=== PATIENT | male | born 1970 | race Caucasian/White ===

== ENCOUNTER 2017-01-22 16:38 | Inpatient (IN) ==
[2017-01-22] MEDS ORDERED: MORPHINE IV ONE (17:23)
[2017-01-22] MEDS ORDERED: LEVAQUIN 500 MG/D5W 500 MG/100 ML IVPB IV ONE (17:23)
[2017-01-22] MEDS ORDERED: FLAGYL 500 MG/NS 500 MG/100 ML IVPB IV ONE (17:23)
[2017-01-22] MEDS ORDERED: SODIUM CHLORIDE 0.9% INJ ONE (17:24)
[2017-01-22] MEDS ORDERED: PHENERGAN IV ONE (17:24)
--- NOTE | 2017-01-22 17:52 | PROVIDER DOCUMENTATION ---
This chart was entered by Lorena Falcon Scribe, acting as scribe for Justin Helton MD. HPI-Abdominal Pain/GI Problem - General Chief Complaint: Abdominal Pain Stated Complaint: SENT BY DR WHITING- POSS DIVERTICULITIS Time Seen by Provider: 01/22/17 16:57 Source: patient, family Allergies/Adverse Reactions: Patient Allergies Allergy/AdvReac Type Severity Reaction Status Date / Time Penicillins Allergy Unknown Verified 04/19/12 19:23 Home Medications: Home Medication List Medication Instructions Recorded Confirmed Last Taken Type Hydrocodone/Acetaminophen [Lortab 1 each PO 4XDAY 04/19/12 04/19/12 09/19/12 History 10-500 Tablet] Meloxicam [Mobic] 30 mg PO DAILY 04/19/12 04/19/12 09/18/12 History Morphine Sulfate [Morphine Sulfate 30 mg PO DAILY 09/19/12 09/19/12 09/18/12 History ER] Hydrocodone/Acetaminophen [[place] 1 each PO Q4-6H PRN PRN #20 tablet 01/30/16 Unknown Rx 10-325 Tablet] Tamsulosin [Flomax] 0.4 mg PO DAILY #7 capsule 01/30/16 Unknown Rx - History of Present Illness-ABD Nature of Presenting Problems: 46 year-old male presents to the ER with lower abdominal pain, diarrhea, and rectal bleeding. His symptoms began 7 weeks ago and have been getting worse. 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 Whiting, who saw him in her office earlier today. He has changed his diet to rice, chicken, and salads during the past 3 weeks with no improvement. He has had blood present in his diarrhea and had blood present upon a rectal exam performed by Dr. Whiting earlier today. She suspects colitis and sent the patient to the ER to be admitted for further testing. The patient denies any nausea upon on exam, but continues to have diarrhea and abdominal pain. Abdominal Pain Onset Location: reports: RLQ, LLQ Pain Radiation: reports: no radiation Quality of Pain: reports: aching, pressure Severity in ED: reports: moderate Onset/Duration: reports: other (7 weeks) Timing: reports: still present, getting worse Activities at Onset: reports: none Exposure to sick contacts?: No Modifying Factors: worse with: breathing, defecating, vomiting Associated Symptoms: reports: diarrhea, nausea. denies: constipation, fever/ chills, shortness of breath, syncope, vomiting Last BM: this evening Dark Stools Present?: reports: bright red blood Rectal Bleeding: reports: blood mixed with stool Rectal Pain: reports: none Emesis Description: reports: none Bruising or Bleeding Gums?: No Similar Symptoms Previously?: Yes (Ongoing for 7 weeks. ) Recently seen or treated by another doctor?: Yes (Dr. Whiting) Review of Systems - Adult - REVIEW OF SYSTEMS - ADULT Constitutional: reports: no symptoms reported, see HPI. denies: chills, fever, weight gain, weight loss Eyes: reports: no symptoms reported, see HPI. denies: discharge, decreased vision, double vision, redness Ears, Nose, Mouth & Throat: reports: no symptoms reported, see HPI. denies: ear pain, sinus problem, hoarseness, throat pain Cardiovascular: reports: no symptoms reported, see HPI. denies: chest pain, edema, syncope Respiratory: reports: no symptoms reported, see HPI. denies: chronic cough, cough, dyspnea on exertion, shortness of breath Gastrointestinal: reports: see HPI, abdominal pain, diarrhea, nausea, rectal bleeding. denies: difficulty swallowing, vomiting Genitourinary: reports: no symptoms reported, see HPI. denies: dysuria, flank pain, incontinence Musculoskeletal: reports: no symptoms reported, see HPI. denies: back pain, muscle aches, muscle weakness Integumentary: reports: no symptoms reported, see HPI. denies: hair loss, itching, rash Neurological: reports: no symptoms reported, see HPI. denies: dizziness/vertigo , syncope Psychiatric: reports: no symptoms reported, see HPI. denies: anxiety, anti- depressant use, depression Endocrine: reports: no symptoms reported, see HPI Hematologic/Lymphatic: reports: no symptoms reported, see HPI. denies: easy bruising Allergic/Immunologic: reports: no symptoms reported, see HPI All Other Systems: Reviewed and Negative Past History - Adult - PAST MEDICAL HISTORY-ADULT Review of Records: reports: Old Records Reviewed, Nursing Assessment Review, Medications Reviewed, Social history reviewed & non-contributory. Major Childhood Illnesses: reports: denies history Cardiovascular: reports: denies history Respiratory: reports: denies history Gastrointestinal: reports: denies history Obstetrical/Gynecological: reports: denies history Genitourinary: reports: denies history Musculoskeletal: reports: denies history Neurological: reports: denies history Endocrine/Immune: reports: denies history Other Conditions: reports: denies history - IMMUNIZATION STATUS Childhood Immunizations: See Nurse Assessment Flu Vaccine: See Nurse Assessment - FAMILY HISTORY Family History: reviewed, not pertinent - SOCIAL HISTORY Smoking: non-smoker Substance Use: none/never, none presently/history of abuse Alcohol Use Frequency: never Physical Exam-General - PHYSICAL EXAM-ADULT Initial Vital Signs Reviewed: Yes - CONSTITUTIONAL General Appearance: appears well, alert, no apparent distress. negative: obese , lethargic - EYES Eyes: PERRL/EOMI. negative: pink conjunctivae, pale conjunctivae, photophobia, subconjunctival hemorrhage - HEAD, EARS, NOSE, MOUTH & THROAT HENMT: normocephalic/atraumatic, moist mucous membranes, normal ENT inspection, pharynx normal. negative: dental decay, pharyngeal erythema - NECK Neck: non-tender, full range of motion, supple, normal inspection - RESPIRATORY Respiratory: chest non-tender, lungs clear, normal breath sounds, no pleuratic chest pain, no respiratory distress, no accessory muscle use. negative: respiratory distress, decreased breath sounds, accessory muscle use, crackles, rales, rhonchi, wheezing - CARDIOVASCULAR Cardiovascular: normal peripheral pulses, regular rate, rhythm, no edema, no gallop, no murmur - GASTROINTESTINAL (ABDOMEN) Abdominal Exam: normal bowel sounds, soft, tenderness ([place] lower quadrants are tender to palpation.) - LYMPHATIC Lymphatic: no adenopathy - MUSCULOSKELETAL Back Exam: normal inspection, no CVA tenderness, no vertebral tenderness, CVA tenderness. negative: decreased range of motion Extremity: normal range of motion, non-tender, normal gait, normal inspection. negative: no pedal edema, no calf tenderness, swelling, tenderness - SKIN Integumentary: normal color, normal turgor, warm/dry, warm. 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 nml as tested, grossly normal, no motor/sensory deficits - PSYCHIATRIC Psych/Mental Status: normal mood/affect, normal thought content, normal thought process, oriented x 3 Progress - PLAN OF CARE/RESULTS Progress/Plan/Lab Results: Vital Signs - 8 hr 08/23/17 16:46 Temperature 99.1 F Pulse Rate 86 Respiratory Rate 18 Blood Pressure 149/89 O2 Sat by Pulse Oximetry 99 Orders Category Date Time Status Levofloxacin 500 mg/D5w [Levaquin 500 mg/D5w] Med 01/22/17 17:23 Active 500 mg in 100 ml IV NOW Metronidazole 500 mg/Ns [Flagyl 500 mg/Ns] Med 01/22/17 17:23 Active 500 mg in 100 ml IV NOW Morphine Med 01/22/17 17:23 Discontinued 4 mg IV NOW ONE Promethazine [Phenergan] Med 01/22/17 17:24 Discontinued 12.5 mg IV NOW ONE Sodium Chloride 0.9% Med 01/22/17 17:24 Discontinued 10 ml INJ NOW ONE - CONSULTS/PCP/HOSPITALIST Notification #1 *Consult/PCP/Hospitalist*: Dr. Whiting calls ER to give report on patient prior to arrival to ER. Reason/Comments: Patient has rectal bleeding and possible colitis. Consult Disposition: other (Will contact Dr. Whiting when patient arrives.) #2 Consult: Dr. Perez the hospitalist radiation control technician at this time. Time Discussed: 17:25 Reason/Comments: Patient is accepted for admission to his services at this time. Consult Disposition: Admit #3 Consult: Dr. Whiting via cell phone. Time Discussed: 17:30 Reason/Comments: Informed Dr. Whiting of patient's status. Consult Disposition: other (Will consult with patient in hospital.) Departure - Departure Date of Disposition Decision: 01/22/17 Time of Disposition Decision: 17:45 DIAGNOSIS: Colitis Disposition: ADMITTED INPATIENT 09 Certified Medical Emergency: Emergent Condition: Stable Referrals and Follow-Ups: VARUN ESPARZA [Primary Care Provider] - Wendi Whiting MD [ACTIVE STAFF PHYSICIAN] - - Critical Care Note This patient required my direct & personal management of CC.: No Attestation - Physician/ KATELYNN Attestation Patient care was provided by Advanced Practice Provider:: No The physician spent face to face time with patient:: Yes Advanced Practice Provider documentation review:: Supervising physician onsite and consulted in the evaluation and care of this patient. The physician did have a face to face encounter with the patient. This chart was documented by the indicated scribe, (Lorena Falcon, Abdiel) and accurately reflects the services I performed and decisions made by me, Cal Helton MD, as attested by the provider's signature.
--- NOTE | 2017-01-22 19:45 | HISTORY AND PHYSICAL ---
PCP: None. HAND KISS SETTER: Dr. Whiting. PRESENTING COMPLAINT: Bloody diarrhea for 1 month. HISTORY OF PRESENTING COMPLAINT: Mr. Hernandez is a 46-year-old male with past medical history of nephrolithiasis, who according to him, has been experiencing bloody stools for over a year now. However, for the past couple of months he has also been having diarrhea in the number of 10-20 which is usually bloody and has lost about 15 pounds in the past 1 month, and also had some ulcers in his mouth about a month ago. The patient went to see a PCP, saw a nurse practitioner and was referred to see Dr. Whiting. I understand Dr. Whiting planned to do a colonoscopy; however, after examining the patient this morning in her office, there was a lot of blood on the SC exam, so she advised the patient to come to the emergency department with an order for a CT scan, which was positive. She therefore recommended that the patient be admitted for medical workup and management. The patient also refers that for the past few weeks, he has been having on and off lower abdominal pain on a scale of about 4 to 6/10. It is usually cramping in nature and it goes on its own without any intervention. PAST MEDICAL HISTORY: Nephrolithiasis. ALLERGIES: To penicillin. Patient is not sure what type of allergy it gives, it was from childhood. However, he has taken amoxicillin before and has not given him any reaction. SURGICAL HISTORY: Renal stone extraction. SOCIAL HISTORY: Patient is . Denies alcohol. Stopped smoking for the past 6 months, used to smoke more than 2 packs a day for over 20 years. FAMILY HISTORY: Positive for both grandparents on the mother's side with colorectal cancer. CURRENT MEDICATIONS: Include: 1. Meloxicam. 2. [place]. 3. Morphine at home. 4. Tamsulosin 0.4 mg daily. REVIEW OF SYSTEMS: A 12-point review of systems conducted with the patient is unremarkable. Specifically, the patient denies any chest pain or shortness of breath. Denies any rash on his skin. Denies any ulcerations around his penis. Denies any discoloration or blurry vision. PHYSICAL EXAMINATION: VITAL SIGNS: Have not been done yet. GENERAL: Mr. Hernandez is a 46-year-old male. He is in bed, does not seem to be in any remarkable distress. Seems to have normal weight. HEENT: Mucosa is pink and moist. Anicteric. Acyanotic. Head is normocephalic and atraumatic. NECK: Supple. There is no JVD no carotid bruit. Thyroid is not palpable. CHEST: Good air entry bilateral. No crepitations. No rhonchi. There is no accessory muscle use. CARDIOVASCULAR: Regular rate and rhythm. There is no murmurs, no rubs, no gallops. [place] is at 5th intercostal space, midclavicular line. ABDOMEN: Soft. Mildly tender in the left lower quadrant. There is no rebound or no guarding. Bowel sounds are present. There is no hepatosplenomegaly. EXTREMITIES: No pedal edema. Distal pulses are present. There is no rash or any petechiae. 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 Executive functions are intact. Gait is normal. Cranial nerves 2-12 have been grossly examined and they are unremarkable. Motor is 5/5 in all extremities. There is no sensory deficits. Reflexes are normal. PSYCH: Patient has good judgment and insight. LABORATORY DATA: This morning WBC is 9.58, hemoglobin is 13.6, platelet count 330,000. Chemistry is reviewed. Sodium is 141, potassium is 4.1, chloride is 28, bicarb is 14. A CT scan of the abdomen shows distal colitis. ASSESSMENT: Mr. Hernandez is a 46-year-old male who presented to the emergency department from Dr. Whiting's office, complaining of more than a month of diarrhea with blood. 1. Chronic bloody diarrhea. R/o IBD 2. Distal colitis on CT scan. 3. Constipation. 4. Mild dehydration. 5. Previous tobacco abuse. Patient has stopped smoking for the past 6 months. PLAN: The general plan is there has been an order already for stool cultures and stool studies to be done. We will follow up on the results. Will start the patient on IV levofloxacin and metronidazole for the colitis. We will also add MiraLAX to help with the CT finding of constipation. I think patient would eventually need to have a scope. In the acute inflammatory state, I think colonoscopy will not be ideal, but the patient can still have a flexible sigmoidoscopy to have an idea what is going on in colon. We will consult Dr. Whiting to evaluate the patient while he is in the hospital. cc: Galindo Perez MD MTDD
[2017-01-23] MEDS ORDERED: NS 1,000 ML IV ONE (00:34)
[2017-01-23] MEDS ORDERED: TYLENOL PO PRN (00:34)
[2017-01-23] MEDS: ZOFRAN IV PRN ×2 (01:06→06:28)
[2017-01-23] MEDS: MORPHINE IV PRN ×5 (01:06→22:00)
[2017-01-23] MEDS: FLAGYL 500 MG/NS 500 MG/100 ML IVPB IV SCH ×4 (01:07→20:58)
[2017-01-23] MEDS: PROTONIX IV SCH (03:08)
[2017-01-23] MEDS: SODIUM CHLORIDE 0.9% INJ SCH (03:08)
[2017-01-23 08:56] LABS: MANUAL DIFF NEEDED? NO
[2017-01-23 09:00] LABS: BASO% 0.2 % (0.0-0.8); EOS# 0.11 X1000 (0.0-0.7); HEMATOCRIT 38.8 % (42.0-52.0); HEMOGLOBIN 12.9 g/dL (14.0-18.0); IMM GRAN# 0.05 X1000 (0.0-0.04); IMM GRAN% 0.5 % (0.0-0.5); LYMPH# 1.36 X1000 (1.2-3.4); LYMPH% 12.5 % (20.5-51.1); MCH 29.5 PG (27-31); MCHC 33.2 g/dL (33-37); MCV 88.6 FL (81-99); MONO% 14.7 % (1.7-9.3); MPV 10.7 FL (7.4-10.4); NEUT% 71.1 % (42.2-75.2); PLT 299 X1000 (130-400); RBC 4.38 XMIL (4.7-6.1)
[2017-01-23 09:20] LABS: AGAP 12; ALBUMIN 3.6 g/dL (3.5-5.0); ALKALINE PHOSPHATASE 73 U/L (32-122); BUN 7 mg/dL (8-22); CALCIUM 8.7 mg/dL (8.8-10.2); CHLORIDE 102 mmol/L (98-107); COSMO 279; GOT 15 U/L (10-34); GPT 15 U/L (10-44); SODIUM 141 mmol/L (136-145); TCO2 27 mmol/L (25-35); TOTAL BILIRUBIN 0.47 mg/dL (0.20-1.00); TOTAL PROTEIN 6.7 g/dL (6.3-8.3)
[2017-01-23] MEDS ORDERED: FLEET ENEMA PR ONE (14:00)
[2017-01-23] MEDS ORDERED: DIPRIVAN 1% ONE (16:36)
[2017-01-23] MEDS ORDERED: ROBINUL ONE (16:42)
[2017-01-23] MEDS ORDERED: XYLOCAINE-MPF 2% ONE (16:42)
[2017-01-23] MEDS ORDERED: TUBERSOL ID ONE (17:15)
[2017-01-23] MEDS ORDERED: SOLU-MEDROL IV ONE (17:15)
[2017-01-23] MEDS: LEVAQUIN 500 MG/D5W 500 MG/100 ML IVPB IV SCH (17:17)
--- NOTE | 2017-01-23 20:06 | Diag Imaging Result Doc PS360 ---
EXAM: CHEST-2 VIEWS INDICATION: Ulcerative colitis, newly diagnosed TECHNIQUE: 2 views COMPARISON: None. FINDINGS: The lungs are grossly clear. There is no discrete pleural fluid collection or pneumothorax. The cardiomediastinal silhouette and central vasculature are grossly unremarkable. IMPRESSION: No evidence of acute pathology by plain radiograph. Electronically signed by Kemal Cortez 01/23/2017 8:04 PM
[2017-01-24] MEDS: PROTONIX IV SCH (01:48)
[2017-01-24] MEDS: FLAGYL 500 MG/NS 500 MG/100 ML IVPB IV SCH ×4 (01:48→20:51)
[2017-01-24] MEDS: SODIUM CHLORIDE 0.9% INJ SCH (01:48)
[2017-01-24] MEDS: MORPHINE IV PRN ×5 (01:58→20:51)
[2017-01-24] MEDS: SOLU-MEDROL IV SCH ×2 (05:54→17:43)
[2017-01-24 06:00] LABS: AGAP 12; BASO% 0.1 % (0.0-0.8); BUN 10 mg/dL (8-22); CALCIUM 8.6 mg/dL (8.8-10.2); CHLORIDE 101 mmol/L (98-107); COSMO 278; HEMATOCRIT 37.9 % (42.0-52.0); HEMOGLOBIN 12.5 g/dL (14.0-18.0); IMM GRAN# 0.05 X1000 (0.0-0.04); IMM GRAN% 0.6 % (0.0-0.5); LYMPH# 0.86 X1000 (1.2-3.4); LYMPH% 9.9 % (20.5-51.1); MANUAL DIFF NEEDED? YES; MCH 29.3 PG (27-31); MONO# 0.26 X1000 (0.11-0.59); MPV 10.6 FL (7.4-10.4); NEUT% 86.4 % (42.2-75.2); PLT 295 X1000 (130-400); POTASSIUM 4.3 mmol/L (3.5-5.1); RBC 4.26 XMIL (4.7-6.1); SODIUM 139 mmol/L (136-145); TCO2 26 mmol/L (25-35)
[2017-01-24 06:31] LABS: BANDS 18 % (0-1); LYMPHS 6 % (21-51); MONO 2 % (1-9)
--- NOTE | 2017-01-24 07:43 | Diag Imaging Result Doc PS360 ---
EXAM: KUB ABDOMEN HISTORY: severe left colitis, abd pain TECHNIQUE: Two views COMPARISON: None. FINDINGS: Contrast is present in the proximal and mid colon. The bowel loops are not dilated. No organomegaly. No foreign body. No abnormal calcifications. IMPRESSION: Negative exam. Electronically signed by Norberto Santa 01/24/2017 7:41 AM
[2017-01-24] MEDS: ZOFRAN IV PRN ×2 (11:30→16:04)
--- NOTE | 2017-01-24 11:47 | PROGRESS NOTE ---
DATE: 01/24/2017 SUBJECTIVE: Patient is still reporting having diarrhea. Last night he had 6 episodes of diarrhea. Not sure if it was bloody or not. Not vomiting. Now no abdominal pain. He requests some food today. OBJECTIVE: Vital Signs: Temperature 98.3 degrees, heart rate 102, respiratory rate 18, blood pressure 137/84, O2 saturation 95% on room air. General Examination: This is a 46-year-old male, lying in bed, in no acute distress. HEENT: Head is normocephalic, atraumatic. Anicteric sclerae and pale conjunctivae. Mucous membranes moist. Neck: Supple. No JVD noted. No carotid bruits. No lymphadenopathy. No thyromegaly. Cardiovascular: S1, S2 heard. No murmurs, gallops, or rubs. Regular rate and rhythm. Respiratory: Clear bilaterally to auscultation. No work of breathing or using accessory muscles. Abdomen: Soft, mildly tender to palpation in the left lower quadrant but there are no signs of peritoneal irritation. Bowel sounds present. Extremities: No clubbing, cyanosis, or edema. Peripheral pulses present in both legs. Neurological: Patient is alert and oriented x3. Moves 4 extremities. Cranial nerves 2-12 grossly normal. LABORATORY DATA: Reviewed. ASSESSMENT AND PLAN: 1. Acute colitis. 2. Mild dehydration. PLAN: Patient has been admitted to the hospital for the conditions mentioned above. The patient is on Levaquin and Flagyl. Patient has undergone endoscopy. Report is not available in the computer. Apparently a everything was fine. At this point, we will continue with IV fluids. Also inflammatory bowel disease has been suspected so a set of labs have been ordered. Because this patient is still having diarrhea, I think that this patient still needs to stay in the hospital. We will check with GI tomorrow. If this patient is not having any more diarrhea, fever, will see if they are okay to let this patient go. cc: Andrew Adame MD
[2017-01-24] MEDS: LEVAQUIN 500 MG/D5W 500 MG/100 ML IVPB IV SCH (17:48)
[2017-01-25] MEDS: MORPHINE IV PRN ×6 (00:43→22:30)
[2017-01-25] MEDS: SODIUM CHLORIDE 0.9% INJ SCH (02:33)
[2017-01-25] MEDS: FLAGYL 500 MG/NS 500 MG/100 ML IVPB IV SCH ×5 (02:33→20:51)
[2017-01-25] MEDS: PROTONIX IV SCH (02:33)
[2017-01-25] MEDS: ZOFRAN IV PRN ×5 (04:48→22:58)
[2017-01-25] MEDS: SOLU-MEDROL IV SCH ×4 (04:57→18:42)
[2017-01-25 06:14] LABS: MANUAL DIFF NEEDED? NO
[2017-01-25 06:27] LABS: BASO% 0.1 % (0.0-0.8); HEMOGLOBIN 13.8 g/dL (14.0-18.0); IMM GRAN# 0.08 X1000 (0.0-0.04); IMM GRAN% 0.7 % (0.0-0.5); LYMPH% 10.6 % (20.5-51.1); MCH 29.6 PG (27-31); MCHC 33.7 g/dL (33-37); MONO# 0.98 X1000 (0.11-0.59); MONO% 8.7 % (1.7-9.3); MPV 10.6 FL (7.4-10.4); NEUT% 79.9 % (42.2-75.2); PLT 403 X1000 (130-400); RBC 4.66 XMIL (4.7-6.1)
[2017-01-25 06:37] LABS: AGAP 12; BUN 15 mg/dL (8-22); CALCIUM 9.3 mg/dL (8.8-10.2); CHLORIDE 101 mmol/L (98-107); COSMO 284; POTASSIUM 4.5 mmol/L (3.5-5.1); SODIUM 141 mmol/L (136-145); TCO2 28 mmol/L (25-35)
--- NOTE | 2017-01-25 15:49 | CONSULTATION ---
DATE OF CONSULTATION: 01/22/2017 REFERRING PROVIDER: LAVELLE Romero. PRIMARY HOSPITALIST: Andrew Quiles M.D. INDICATION FOR CONSULTATION: 1. Diarrhea. 2. Abdominal pain. 3. Rectal bleeding. HISTORY OF PRESENT ILLNESS: The patient is a 46-year-old white male who presented to our office today with a 3 month history of bright red blood in the stool, multiple daily bloody bowel movements including nocturnal awakening, stool was mucoid exudate, low abdominal tenderness, up to 15 bowel movements per day with fecal incontinence, low back and abdominal pressure, heartburn, nausea, loss of appetite, fatigue and epigastric pain. He reports that he has been placed on [place] for severe back pain. His back pain is not improving. He notes that the pain in his back seems to be worse when he has diarrhea. He was considering the use of nonsteroidal such as Motrin but when the bleeding began he scheduled an appointment for evaluation. He placed himself on over- the-counter Pepcid but continues to have nausea, postprandial fullness, loss of appetite and epigastric pain. He is extremely concerned about malignancy as his maternal grandmother and grandfather both of colon cancer in their early 70s. His mother has had normal colonoscopies. The patient was referred from our office and is currently in the emergency room pending admission. PAST MEDICAL HISTORY: 1. Arthritis. 2. Chronic back pain. 3. GERD. 4. Kidney stones. 5. Metabolic syndrome recently diagnosed. He was told that he was prediabetic and has recently placed himself on a low carbohydrate diet. 6. Thyroid disease. PAST SURGICAL HISTORY: None. MEDICATION ALLERGIES: Penicillin. HOME MEDICATIONS: 1. Flomax 0.4 mg p.o. daily. 2. Morphine sulfate ER 30 mg p.o. daily. 3. Mobic 30 mg 1 p.o. daily. 4. [place] 10 one every 4-6 hours as needed. 5. Lortab 10 one 4 times a day. 6. Testosterone cream. 7. Probiotic. 8. Pepcid [id number] once daily. 9. He was prescribed Synthroid but is not currently taking it. FAMILY HISTORY: Remarkable in that his maternal grandmother and grandfather both of colon cancer in their early 70s. His mother has acid reflux and diabetes. She had a normal screening colonoscopy according to the patient. His father has diabetes. His sister has diabetes. SOCIAL HISTORY: The patient is with 1 child. He drinks a pint of alcohol every 1-2 months. Prior to his current marriage of 1 year he was drinking on a daily basis. Tobacco history is remarkable in that he smoked 2 packs per day for 30 years. He stopped smoking in July 2016. He denies recreational drug use. REVIEW OF SYSTEMS: Positive for night sweats, chills, loss of appetite, fatigue and unplanned weight loss. He notes lightheadedness and blurred vision at times. He reports the rectal bleeding as described above. In addition to the diarrhea and blood in the stool , he reports significant rectal irritation to the point that is difficult to sit down at times. He reports heartburn, indigestion, nausea and epigastric pain. He denies dysphagia. He is concerned because of the new onset of fecal incontinence. PHYSICAL EXAMINATION: Vital Signs: His blood pressure is 149/89, pulse of 86, respiration 18, temperature of 99.1 degrees. HEENT: Unremarkable. His oropharyngeal mucosa membranes are slightly dry but there are no lesions. Pulmonary: Lungs are clear to auscultation with normal respiratory effort. Cardiovascular Exam: Reveals regular rate and rhythm with no murmurs, gallops, or rubs. Abdominal Exam: Reveals normoactive bowel sounds. The abdomen is soft with moderate left lower quadrant tenderness and mild epigastric tenderness. There is no rebound or guarding. Extremities: Bilaterally are negative for cyanosis, clubbing, or edema. Rectal Exam: In the emergency room was deferred. In clinic today he had gross bright red blood on the tip of the glove and pain with palpation of the rectum. There were also large external hemorrhoids with thrombosis. Neurologic: He is alert and oriented x3 with the appropriate mood , affect and memory. IMPRESSION: 1. Nausea. 2. Reflux. 3. Epigastric pain. 4. Bloody diarrhea. 5. Left lower quadrant pain. 6. New onset fecal incontinence. 7. Unplanned weight loss. RECOMMENDATION: 1. We recommend admission as you are doing. 2. I would begin a course of Levaquin and Flagyl as I suspect he has enterocolitis versus inflammatory bowel disease. 3. Please obtain a CT scan of the abdomen and pelvis for further evaluation of his GI concerns. 4. After he is admitted, I will plan to perform an EGD with a colonoscopy and/ or flexible sigmoidoscopy depending on the findings on CT scan. 5. Please begin IV Protonix 40 mg IV q.12 hours pending endoscopic evaluation. 6. Additional recommendations to follow based on his clinical course. cc: Mckenna NGO
--- NOTE | 2017-01-25 16:43 | OPERATIVE NOTE ---
PROCEDURE DATE: 01/23/2017 REFERRING PROVIDER: LAVELLE Romero. PRIMARY HOSPITALIST: Andrew Quiles M.D. INDICATIONS FOR PROCEDURE: 1. Left lower quadrant pain. 2. Bloody diarrhea. 3. Rectal bleeding. PROCEDURE PERFORMED: Flexible sigmoidoscopy with biopsy. COMPLICATIONS: There were no complications. ESTIMATED BLOOD LOSS: Less than 1-2 mL. SPECIMENS REMOVED: 1. In jar #3 there was a left colon biopsy. 2. In jar #4, there was a stool aspirate. FINDINGS: After the EGD was performed, the upper endoscope was inserted to 60 cm. At 60 cm, there was normal colonic mucosa with solid stool. Upon withdrawing the scope there was acute ulcerative colitis beginning at 55 cm and extending to the rectum. There were multiple severe serpiginous ulcers with deep ulceration. There were air bubbles and at least 2 places that are worrisome for possible microperforation. The upper rectum was inflamed. Retroflexed view was not performed due to the amount of severe colitis. Multiple biopsies were taken. The stool aspirate was obtained for stool studies to assess for infection and inflammation. After the exam was complete, the lumen was decompressed and the scope was removed without incident. IMPRESSION: Severe acute colitis consistent with acute ulcerative colitis. RECOMMENDATION: 1. Await biopsy results. 2. Begin Levaquin 500 mg IV q.24 hours. 3. Begin Flagyl 250 mg IV q.6 hours. 4. Begin Solu-Medrol 40 mg IV q.24 hours. 5. I strongly suspect severe ulcerative colitis and will seek approval for anti TNF therapy. He will need a chest x-ray, PPD skin test, and a hepatitis panel as part of the pretreatment evaluation. 6. Begin a clear liquid diet overnight. If he tolerates this with no GI symptoms, I would advance his diet as tolerated. 7. We will have the patient return to clinic 2 weeks after hospital discharge to assess interval progress. cc: MD Mckenna Vale MD [facility]ERRosendo
[2017-01-25] MEDS: LEVAQUIN 500 MG/D5W 500 MG/100 ML IVPB IV SCH (16:46)
--- NOTE | 2017-01-25 16:50 | OPERATIVE NOTE ---
PROCEDURE DATE: 01/25/2017 REFERRING PHYSICIAN: CALLIE Adkins. PRIMARY HOSPITALIST: Andrew Adame M.D. INDICATION FOR THE PROCEDURE: 1. Bloody diarrhea. 2. Abdominal pain. 3. Rectal pain. 4. Nausea. 5. Epigastric pain. 6. Loss of appetite. PROCEDURE PERFORMED: Esophagogastroduodenoscopy with biopsy. CONSENT: Informed consent was obtained from the patient prior to the procedure. The risks, benefits, and alternatives were discussed. MEDICATIONS: The patient received monitored anesthesia care. PERFORMING PHYSICIAN: Wendi Whiting M.D. ASSISTANTS: 1. ST. Annalee 2. Cecelia Nash RN. 3. Liz Cuello CRNA. 4. Jose M Rabago M.D. (anesthesia). COMPLICATIONS: There were no complications. ESTIMATED BLOOD LOSS: Less than 1-2 mL. SPECIMENS REMOVED: 1. Duodenal biopsy. 2. Gastric biopsy. FINDINGS: After sedation was achieved, the upper endoscope was inserted to the 2nd portion of the duodenum. The hypopharynx appeared normal. The tubular esophagus appeared normal. There was a nonobstructive Schatzki's ring at the GE junction which was measured at 40 cm from the incisors. There was a hiatal hernia that spanned from 40-45 cm. Upon intubation of the gastric lumen, there was more than 300 mL of bilious secretions. The secretions were evacuated. The underlying gastric mucosa had erosive changes with old heme consistent with erosive gastritis. In the fundus, there was a benign-appearing fundic gland polyp that remained intact. On forward view, the pylorus appeared endoscopically normal. In the duodenum, there were erosive changes in the duodenal bulb that extended to the 2nd portion of the duodenum consistent with duodenitis. The ampulla of Vater appeared normal. After biopsies were taken, the lumen was decompressed and the scope was removed without incident. IMPRESSION: 1. Schatzki's ring, nonobstructive. 2. Hiatal hernia. 3. Retained gastric secretions suggestive of diagnosis of gastroparesis. 4. Erosive gastritis. 5. Fundic gland polyp. 6. Erosive duodenitis. RECOMMENDATION: 1. Await biopsy results. 2. Begin Protonix 40 mg IV q.12 hours. 3. We will check a gastric emptying study as the patient is suspected to have gastroparesis. 4. We will proceed with the flexible sigmoidoscopy as previously scheduled. 5. Additional recommendations to follow based on the results of the flexible sigmoidoscopy. cc: MD Mckenna Vale CRNP. Andrew Adame MD [facility]
--- NOTE | 2017-01-25 17:02 | PROGRESS NOTE ---
DATE: 01/25/2017 SUBJECTIVE: This patient is still having diarrhea and blood, he is still complaining of abdominal pain. For now we will continue with antibiotics. Hopefully once he is better we can go ahead and probably get an endoscopy done. OBJECTIVE: Vital Signs: Temperature 98.1 degrees, pulse 64, respiratory rate 18, blood pressure 126/84, oxygen saturation 98 on room air. HEENT: Head normocephalic. No trauma. PERRLA. Neck: Supple. No JVD. No masses. Central trachea. Chest: Clear to auscultation. No wheezing. No rales. Cardiovascular: RRR. No murmurs. No gallops. No rubs. Abdomen: Soft, tender to palpation at the level of the periumbilical area and left abdominal area. Extremities: No edema. No clubbing. No cyanosis. Neurological: The patient is alert and oriented x3. No focal neurological deficits. LABORATORY: WBC 11.2, hemoglobin 13.8, hematocrit 41, platelet 403,000. Sodium 141, potassium 4.5, chloride 101, bicarbonate 28, BUN 15, creatinine 0.8, glucose 134, calcium 9.3, CRP 71.9. ASSESSMENT AND PLAN: 1. Acute colitis, this patient is still having bloody diarrhea. We will continue for now with the same management. Gastroenterology department has been consulted. We will continue following their recommendations. 2. Dehydration, resolved. 3. Hypothyroidism. Will restart this patient's thyroid medication. He does not remember the amount of thyroid hormone that he is getting but will start this patient on 75 mcg for now based on his weight. cc: German Duncan MD
[2017-01-25] MEDS ORDERED: LEVSIN-SL SL PRN (18:16)
--- NOTE | 2017-01-25 18:36 | PROGRESS NOTE ---
DATE: 01/25/2017 SUBJECTIVE: The patient states that overall he is feeling significantly better than when he was admitted. Yesterday his stools were slightly thicker with less blood. This morning, he had a solid bowel movement with just blood on the outside of the stool. However, after lunch he passed a large amount of bright red blood with minimal stool present. He notes some abdominal spasm and cramping since he passed the blood. He denies nausea with vomiting and has been able to ambulate on the floor. He is concerned about going home as long as he is passing copious amounts of bright red blood. OBJECTIVE: Vital signs: On exam his blood pressure is 121/63, pulse 84, respiration 18, temperature of 98.2 degrees. Abdomen: Is soft with mild left lower quadrant tenderness which is an interval improvement. The bowel sounds are audible at bedside. LABORATORY DATA: Remarkable for hemoglobin of 13.8 with hematocrit of 41 and a white count of 11.28. Has 403,000 platelets. Sodium is 141, potassium 4.5, chloride 101, CO2 28, BUN 15, creatinine 0.8 with a glucose of 134. His calcium is 9.3. His CRP has decreased from 143.5 to 71.92. RECOMMENDATION: 1. The patient continues to have bloody bowel movements and has significant ulceration in the left colon. In addition to continuing the IV Solu-Medrol, I will add Rowasa enemas 4 g at bedtime. 2. He continues to have significant hemorrhoidal pain. I will add Anusol cream per rectum at night prior to administration of the Rowasa enema. If he has interval improvement he may increase the use of Anusol cream to 2-3 times per day. 3. To help with the abdominal spasms, I will begin Levsin 0.125 mg sublingual up to 4 times a day as needed for abdominal spasms. 4. Continue Protonix 40 mg IV q.24 hours. Once the bleeding stops, transition to oral therapy. 5. Continue Levaquin and Flagyl. He should complete a total of 10 days of antibiotics as an outpatient. 6. Additional recommendations will be based on the pending laboratory studies including his IBD profile. cc: Mckenna NGO
[2017-01-25] MEDS: ROWASA ENEMA PR SCH (20:50)
[2017-01-25] MEDS: ANUSOL-HC CREAM PR SCH (23:55)
[2017-01-26] MEDS: PROTONIX IV SCH (02:06)
[2017-01-26] MEDS: FLAGYL 500 MG/NS 500 MG/100 ML IVPB IV SCH ×4 (02:09→20:50)
[2017-01-26] MEDS: MORPHINE IV PRN ×5 (02:09→22:20)
[2017-01-26] MEDS: ZOFRAN IV PRN ×2 (02:10→06:32)
[2017-01-26 05:51] LABS: MANUAL DIFF NEEDED? NO
[2017-01-26 05:54] LABS: BASO% 0.1 % (0.0-0.8); HEMATOCRIT 36.5 % (42.0-52.0); HEMOGLOBIN 12.2 g/dL (14.0-18.0); IMM GRAN# 0.07 X1000 (0.0-0.04); IMM GRAN% 0.7 % (0.0-0.5); LYMPH# 1.62 X1000 (1.2-3.4); LYMPH% 17.2 % (20.5-51.1); MCH 29.6 PG (27-31); MCHC 33.4 g/dL (33-37); MCV 88.6 FL (81-99); MONO# 1.11 X1000 (0.11-0.59); MONO% 11.8 % (1.7-9.3); MPV 10.8 FL (7.4-10.4); NEUT% 70.2 % (42.2-75.2); PLT 337 X1000 (130-400); RBC 4.12 XMIL (4.7-6.1)
[2017-01-26] MEDS: SYNTHROID PO SCH (06:32)
[2017-01-26] MEDS: SOLU-MEDROL IV SCH (06:32)
[2017-01-26 06:39] LABS: AGAP 11; BUN 17 mg/dL (8-22); CALCIUM 8.6 mg/dL (8.8-10.2); CHLORIDE 101 mmol/L (98-107); COSMO 285; POTASSIUM 4.2 mmol/L (3.5-5.1); SODIUM 141 mmol/L (136-145); TCO2 29 mmol/L (25-35)
[2017-01-26 06:44] LABS: FREE T4 0.92 ng/dL (0.93-1.70)
--- NOTE | 2017-01-26 15:22 | PROGRESS NOTE ---
DATE: 01/26/2017 SUBJECTIVE: As per the patient, his diarrhea is improving but he is still having blood in the stool. He is still complaining of abdominal pain but compared with yesterday is a little bit better. For now will continue with the antibiotics. Tomorrow we have scheduled a gastric emptying study. He will be NPO after midnight. OBJECTIVE: Vital Signs: Temperature 98.3 degrees, pulse 81, respiratory rate 18, blood pressure 101/67, oxygen saturation 99 on room air. HEENT: Head normocephalic. No trauma. PERRLA. Neck: Supple. No JVD. No masses. Central trachea. Chest: Clear to auscultation. No wheezing. No rales. Cardiovascular: RRR. No murmurs. Abdomen: Soft, tender to palpation at the level of the periumbilical area and left lower quadrant. Extremities: No edema. No clubbing. No cyanosis. Neurological: The patient is alert and oriented x3. No focal neurological deficits. LABORATORY: WBC 9.4, hemoglobin 12.2, hematocrit 36.5, platelet 337,000. Sodium 141, potassium 4.2, chloride 101, bicarbonate 29, BUN 17, creatinine 0.9, glucose 137, calcium 8.6. ASSESSMENT AND PLAN: 1. Acute colitis, this patient is still having blood in the stools and pain. For now will continue with the same management. I do believe this patient is getting better. Gastroenterology department following this patient closely. 2. Dehydration resolved. 3. Hypothyroidism. I rechecked his TSH and T4 levels, TSH is high and T4 is low so I will continue with levothyroxine 75 mcg daily for now. Likely he will need to check those lab values again in 6 weeks. 4. Mild normocytic anemia, aware. cc: German Duncan MD
--- NOTE | 2017-01-26 17:35 | PROGRESS NOTE ---
DATE: 01/26/2017 SUBJECTIVE: The patient states that he is feeling significantly better today. He continues to pass blood with his stools. However, he reports that he is passing small hard pellets. He states that there is an urge to defecate, but he has to strain in order to pass a stool. He denies nausea with vomiting or fever with chills. He awaits a gastric emptying study in the morning as he had evidence of gastric stasis on EGD. OBJECTIVE: On exam, his blood pressure is 136/90, pulse is 70, respiration 22, temperature of 98.4 degrees. His abdomen is soft with minimal left lower quadrant tenderness, which is an interval improvement overnight. OBJECTIVE DATA: Reveals a hemoglobin of 12.1 with hematocrit of 36.5 and a white count of 9.43. He has 337,000 platelets. Sodium is 141, potassium 4.2, chloride 101, CO2 29, BUN 17, creatinine 0.9, glucose of 137, and calcium of 8.6. His CRP continues to improve and today it is 25.53. His TSH has been persistently elevated 8.15. IMPRESSION: 1. Ulcerative colitis. 2. Anemia. 3. Bloody diarrhea. 4. Hypothyroidism. 5. Gastric stasis on EGD. RECOMMENDATION: 1. With regard to his ulcerative colitis, I would transition him to oral medications tomorrow. 2. We await a gastric emptying study in the morning. 3. I spoke with Dr. Sakshi Beasley who will meet with the patient prior to discharge to make arrangements for outpatient Remicade therapy. 4. We await the results of his hepatitis serology and PPD skin test as well as approval for treatment. His chest x-ray showed no evidence of acute pathology. 5. His biopsies are currently pending. 6. I anticipate possible discharge after his diagnostic evaluation tomorrow as long as there is minimal blood in the stool. 7. I will begin a small amount of MiraLAX to help the patient avoid straining. It should be noted on flexible sigmoidoscopy that there was intense spasm at the most proximal margin of the acute colitis with solid stool/possible fecal impaction at the transition between normal colon and colitis. He is encouraged to keep his stool soft, but to avoid diarrhea. 8. We will have the patient return to clinic 2 weeks after hospital discharge to assess interval progress. cc: WendiMD German Forman MD Heather Shah, MD Kimberly Samuels, CRNP MTDD
[2017-01-26] MEDS: LEVAQUIN 500 MG/D5W 500 MG/100 ML IVPB IV SCH (17:44)
[2017-01-26] MEDS: ROWASA ENEMA PR SCH (20:50)
[2017-01-26] MEDS: ANUSOL-HC CREAM PR SCH (20:50)
[2017-01-27] MEDS: PROTONIX IV SCH (05:24)
[2017-01-27] MEDS: FLAGYL 500 MG/NS 500 MG/100 ML IVPB IV SCH ×2 (05:24→10:04)
[2017-01-27] MEDS: SODIUM CHLORIDE 0.9% INJ SCH (05:24)
[2017-01-27 05:42] LABS: MANUAL DIFF NEEDED? NO
[2017-01-27 05:52] LABS: BASO% 0.2 % (0.0-0.8); EOS# 0.02 X1000 (0.0-0.7); EOS% 0.2 % (0.0-10.0); HEMATOCRIT 41.3 % (42.0-52.0); HEMOGLOBIN 13.7 g/dL (14.0-18.0); IMM GRAN# 0.17 X1000 (0.0-0.04); IMM GRAN% 1.4 % (0.0-0.5); LYMPH# 3.52 X1000 (1.2-3.4); LYMPH% 28.9 % (20.5-51.1); MCH 29.5 PG (27-31); MCHC 33.2 g/dL (33-37); MONO# 1.52 X1000 (0.11-0.59); MONO% 12.5 % (1.7-9.3); MPV 10.7 FL (7.4-10.4); NEUT% 56.8 % (42.2-75.2); PLT 399 X1000 (130-400); RBC 4.64 XMIL (4.7-6.1)
[2017-01-27] MEDS ORDERED: SOLU-MEDROL IV SCH (06:00)
[2017-01-27 06:07] LABS: AGAP 9; BUN 18 mg/dL (8-22); CALCIUM 8.7 mg/dL (8.8-10.2); CHLORIDE 100 mmol/L (98-107); COSMO 283; POTASSIUM 3.9 mmol/L (3.5-5.1); SODIUM 141 mmol/L (136-145); TCO2 32 mmol/L (25-35)
[2017-01-27] MEDS: SYNTHROID PO SCH (06:47)
[2017-01-27] MEDS: PRILOSEC PO SCH (06:47)
[2017-01-27 09:47] LABS: HEPATITIS PROFILE ACUTE SEE COMMENTS
[2017-01-27] MEDS: MORPHINE IV PRN ×3 (10:06→21:44)
[2017-01-27] MEDS: FLAGYL PO SCH ×2 (14:28→20:39)
--- NOTE | 2017-01-27 15:23 | Diag Imaging Result Doc PS360 ---
EXAM: CTA ABD/PELVIS W/CONTRAST HISTORY: Abdominal pain/bleed TECHNIQUE: CT angiography of the abdomen and pelvis with intravenous contrast with 3-D MIPS COMMENT: There is no evidence of acute disease in the visualized portion of the chest. There is a hiatal hernia. The mesenteric and renal arteries are patent. There is a small accessory left renal artery to the upper pole. There is no evidence of abdominal aortic aneurysm. There is diffuse mucosal thickening in the left colon extending to the rectum from just below the splenic flexure. There is a narrowed segment of the superior mesenteric artery 2.4 cm from the ostium with a luminal diameter which in the sagittal plane appears to be less than 4 mm compared to 5 mm distal to this point and 6-7 millimeters proximal. The inferior mesenteric artery is widely patent and there is no evidence of atherosclerotic plaque or calcification. There is a small fat-containing right inguinal hernia. There is no evidence of appendicitis. Small bowel is not distended. There is no evidence of gallstones. No renal masses or hydronephrosis are present. IMPRESSION: Distal left colitis. This was also demonstrated on the previous study of 01/22/2017 and is apparently not changed. There are some atherosclerotic changes present in the superior mesenteric artery which may or may not be associated with this abnormality. The inferior mesenteric artery is apparently patent. Electronically signed by Brad Dumont 01/27/2017 3:21 PM
--- NOTE | 2017-01-27 16:14 | PROGRESS NOTE ---
DATE: 01/27/2017 SUBJECTIVE: Today, this patient was getting a gastric emptying study and he could not finish that because he had bloody diarrhea at that moment. The case has been discussed with Dr. Whiting from Gastroenterology Department. We want to rule out ischemic colitis, so we will ask for a CT angiogram. For now, we will continue with the same treatment with this patient, and I will keep an eye on his hemoglobin and hematocrit. OBJECTIVE: Vital Signs: Temperature 98.4 degrees, pulse 64, respiratory rate 16, blood pressure 111/62, oxygen saturation 100% on room air. HEENT: Head normocephalic. No trauma. PERRLA. Neck: Supple. No JVD. No masses. Central trachea. Chest: Clear to auscultation. No wheezing. No rales. Abdomen: Soft. Mild tenderness to palpation around the periumbilical area. Extremities: No edema. No clubbing. No cyanosis. Neurological: The patient is alert and oriented x3. No focal neurological deficits. LABORATORY: WBC 12.1, hemoglobin 13.7, hematocrit 41.3, platelets 399,000. Sodium 141, potassium 3.9, chloride 100, bicarbonate 32, BUN 18, creatinine 1, glucose 104, calcium 8.7. ASSESSMENT AND PLAN: 1. Acute colitis. This patient still having bloody diarrhea. For now, we will continue with the same management, and I will ask for a CT angiogram of the abdomen to rule out ischemic colitis. 2. Dehydration, resolved. 3. Hypothyroidism. I will continue with levothyroxine 75 mcg p.o. daily. 4. Mild normocytic anemia. Aware. I will follow the hemoglobin and hematocrit daily. cc: German Duncan MD
[2017-01-27] MEDS ORDERED: LEVAQUIN PO SCH (17:00)
--- NOTE | 2017-01-27 17:57 | CONSULTATION ---
DATE OF CONSULTATION: 01/27/2017 REFERRING PHYSICIAN: Wendi Whiting MD. REASON FOR REFERRAL: Ulcerative colitis, need for Remicade in the outpatient setting. HISTORY OF PRESENT ILLNESS: Mr. Robert Hernandez is a very pleasant, 46-year- old man who was recently diagnosed with ulcerative colitis after being admitted to the hospital for complaints of bloody diarrhea for the past month. He is being managed by Dr. Wendi Whiting. He will need to receive Remicade IV in the outpatient setting. PAST MEDICAL HISTORY: Nephrolithiasis. PAST SURGICAL HISTORY: Renal stone extraction. SOCIAL HISTORY: Patient is a former smoker. He denies alcohol or illicit drug use. FAMILY HISTORY: Positive for colorectal cancer in his maternal grandmother and grandfather. ALLERGIES: Penicillin. MEDICATIONS: As per medication sheet. REVIEW OF SYSTEMS: As per HPI. Otherwise a 12-point review of systems was negative. PHYSICAL EXAMINATION: General: The patient appears to be in no apparent distress. Vital Signs: Blood pressure 111/62, pulse 64, respirations 16, temperature 98.4 degrees Fahrenheit, O2 saturation 100% on room air. HEENT: Head normocephalic, atraumatic. Mucosa is pink and moist. Pupils reactive to light. Oropharynx clear. Neck: Supple. No lymphadenopathy or thyromegaly. Cardiovascular: S1, S2. Regular rate and rhythm. No murmurs noted. Respiratory: Breath sounds are clear to auscultation bilaterally. No rhonchi, rales or wheezing noted. Abdomen: Soft, nontender, nondistended. Positive for bowel sounds. Extremities: No evidence of edema, DVT or cyanosis. Skin: No rashes or lesions noted. Neurological: No focal neurological deficits. ASSESSMENT AND PLAN: 1. Ulcerative colitis. 2. Anemia. PLAN: 1. The patient has been worked up by Dr. Wendi Whiting and will need to begin Remicade in the outpatient clinic. We will get him set up for an appointment in our office upon discharge. assessment. 2. Hemoglobin 13.7, hematocrit 41.3. Likely secondary to the ulcerative colitis. Vitamin B12 was adequate. We will monitor counts closely. We will follow along with you and be available as needed. Thank you for this consultation and allowing us to participate in the care of this patient. Dictated by LAVELLE Berg for Sakshi Beasley MD cI have examined the patient and reviewed the chart and agree with the above A/ P. Sakshi Beasley MDc: Sakshi Beasley MD [facility]
[2017-01-27] MEDS: ANUSOL-HC CREAM PR SCH (20:38)
[2017-01-27] MEDS: ROWASA ENEMA PR SCH (20:39)
[2017-01-28] MEDS: FLAGYL PO SCH ×2 (04:45→13:42)
[2017-01-28] MEDS: MORPHINE IV PRN ×3 (04:45→13:42)
[2017-01-28 05:32] LABS: MANUAL DIFF NEEDED? NO
[2017-01-28 05:41] LABS: BASO% 0.2 % (0.0-0.8); EOS# 0.09 X1000 (0.0-0.7); EOS% 0.8 % (0.0-10.0); HEMATOCRIT 40.1 % (42.0-52.0); HEMOGLOBIN 13.4 g/dL (14.0-18.0); IMM GRAN# 0.22 X1000 (0.0-0.04); IMM GRAN% 1.8 % (0.0-0.5); LYMPH# 3.56 X1000 (1.2-3.4); LYMPH% 29.8 % (20.5-51.1); MCH 29.6 PG (27-31); MCHC 33.4 g/dL (33-37); MCV 88.7 FL (81-99); MONO% 12.5 % (1.7-9.3); MPV 10.4 FL (7.4-10.4); NEUT% 54.9 % (42.2-75.2); PLT 396 X1000 (130-400); RBC 4.52 XMIL (4.7-6.1)
[2017-01-28 06:26] LABS: AGAP 6; BUN 16 mg/dL (8-22); CALCIUM 8.5 mg/dL (8.8-10.2); CHLORIDE 99 mmol/L (98-107); COSMO 281; POTASSIUM 3.7 mmol/L (3.5-5.1); SODIUM 140 mmol/L (136-145); TCO2 35 mmol/L (25-35)
[2017-01-28] MEDS: SYNTHROID PO SCH (07:45)
[2017-01-28] MEDS: PRILOSEC PO SCH (07:45)
[2017-01-28 07:48] VITALS: BP 120/71
--- NOTE | 2017-01-28 07:50 | Diag Imaging Result Doc PS360 ---
GASTRIC EMPTYING - 01/27/2017 INDICATION: gastric stasis on egd, reflux TECHNIQUE: 592 uCi of labeled solid food was ingested COMPARISON: None FINDINGS: The T1 half of gastric emptying is 63 minutes. This is a normal value. IMPRESSION: Normal gastric emptying rate Electronically signed by Maverick Donnelly 01/28/2017 7:48 AM
[2017-01-28] MEDS ORDERED: PREDNISONE PO SCH (09:00)
--- NOTE | 2017-01-28 13:37 | PROGRESS NOTE ---
DATE: 01/28/2017 SUBJECTIVE: This patient feels a little bit better compared with yesterday. His abdominal bloating is better. He has been having bowel movement with a small amount of blood. Dr. Whiting has been working up this patient, and she wants to put him on Remicade. Hopefully she will evaluate this patient today and we will have a plan. OBJECTIVE: Vital Signs: Temperature 98.1 degrees, pulse 59, respiratory rate 18, blood pressure 120/71, oxygen saturation 100% on room air. HEENT: Head normocephalic. No trauma. PERRLA. Neck: Supple. No JVD. No masses. Central trachea. Chest: Clear to auscultation. No wheezing. No rales. Abdomen: Soft, mild tenderness to palpation around the periumbilical area. Extremities: No edema. No clubbing. No cyanosis. Neurological examination: The patient is alert and oriented x3. No focal neurological deficits. LABORATORY: WBC 11.9, hemoglobin 13.4, hematocrit 40.1, platelets 396. Sodium 140, potassium 3.7, chloride 99, bicarbonate 35. BUN 16, creatinine 1.1, glucose 103, calcium 8.5. ASSESSMENT AND PLAN: 1. Acute colitis. This patient is still having some blood in the stool, but he is feeling better. For now, will continue with the same management. Dr. Whiting has been working up this patient to start him on Remicade. Hematology on board. CT angiogram did not show any ischemic colitis. 2. Dehydration, resolved. 3. Hypothyroidism. Continue with levothyroxine 75 mcg oral daily. 4. Mild normocytic anemia. Continue to monitor his hemoglobin and hematocrit. cc: German Duncan MD
[2017-01-28] MEDS ORDERED: CARAFATE PO SCH (17:00)
--- NOTE | 2017-01-28 20:24 | DISCHARGE SUMMARY ---
ADMISSION DATE: 01/23/2017 DISCHARGE DATE: 01/28/2017 CONSULTATIONS: 1. Dr. Whiting with Gastroenterology. 2. Dr. Sakshi Beasley with Hematology/Oncology PERTINENT PROCEDURES: 1. Esophagogastroduodenoscopy with biopsy, performed by Dr. Whiting. 2. Flexible sigmoidoscopy with biopsy, performed by Dr. Whiting. 3. Gastric emptying study normal. 4. Abdomen and pelvis CTA showed distal left colitis that was demonstrated on previous study on 01/22/2017, as well as atherosclerotic changes present in the superior mesenteric artery which may or may not be associated with this abnormality. The inferior mesenteric artery is apparently patent. DISCHARGE DIAGNOSES: 1. Acute colitis. The patient is still having some blood in the stool. CTA did not show any ischemic colitis. Evaluated by Gastroenterology and Hematology, and started on Remicade with Dr. Beasley in the outpatient setting. 2. Clinical dehydration, resolved. 3. Hypothyroidism. Continue with Synthroid. 4. Normocytic anemia. Hemoglobin and hematocrit stable. HOSPITAL COURSE: Mr. Hernandez is a 46-year-old, male, with a past medical history of nephrolithiasis. Reports he has been experiencing bloody stools for over a year now; however, over the past couple months he had been having diarrhea in the number of 10 to 20, which is usually bloody and he has lost 15 pounds in the last month. He had some ulcers in his mouth about a month ago. He went to see PCP and saw a nurse practitioner. He was referred to Dr. Whiting. Dr. Whiting planned to do a colonoscopy; however, after examining the patient, there was a lot of blood on the [place] exam, so she advised him to come to the ED and ordered a CT scan, which was positive, so he was admitted for medical workup and management. Stool cultures with stool studies were ordered. He was started on IV levofloxacin and Flagyl for his colitis. Added MiraLAX. He did undergo an EGD and flexible sigmoidoscopy by Dr. Whiting. He does have significant ulceration in the left colon. He was started on IV steroids and Rowasa enemas. Continued on PPI. His EGD suggested a diagnosis of gastroparesis, erosive gastritis. Gastric emptying study was completely normal. CTA of the abdomen was ordered and did show distal left colitis, as a demonstrated on previous study on 01/22/2017. She consulted Dr. Sakshi Beasley to initiate Remicade on an outpatient basis. Clinically, the patient has improved. His abdominal bloating is getting better. He is still having bowel movements with a small amount of blood, and he is being discharged home today, to follow up with Dr. Beasley in the outpatient setting to get him started on Remicade, and will follow up with Dr. Whiting in 1 to 2 weeks. VITAL SIGNS AT TIME OF DISCHARGE: Temperature is 98.1 degrees, heart rate 59, respirations 18, blood pressure 120/71, O2 saturation is 100% on room air. DISCHARGE DIET: GI, soft. DISCHARGE MEDICATIONS: As per Dr. Zuleta. FOLLOWUP: Mr. Hernandez is being discharged home with self care. He is to follow up with Dr. Whiting in 1 to 2 weeks. Continue to follow up with his primary care physician, Mckenna Nava, as well as Dr. Sakshi Beasley. Discharge time: 31 minutes I personally evaluated this patient face to face, images and lab work were reviewed, this patient is doing much better, he needs to continue with treatment at home and follow up with Dr Whiting as an outpatient, I agree with the assessment and plan for this patient, and can be discharged today, German Morfin MD Dictated by LAVELLE Limon for German Duncan MD cc: MD Mckenna Kimble
--- NOTE | 2017-01-29 03:16 | PROGRESS NOTE ---
DATE: 01/28/2017 SUBJECTIVE: The patient states that he is feeling significantly better today. He reports the interval resolution of the diarrhea and the rectal bleeding. He is tolerating his diet and is anxious to go home. He is scheduled to follow up with Dr. Sakshi Beasley to make arrangements for outpatient Remicade therapy. His only concern today is a small amount of constipation. PHYSICAL EXAMINATION: Vital Signs: On examination, his blood pressure is 120/ 71, pulse 59, respirations 18, temperature of 98.1 degrees. Abdomen: Soft and nontender. OBJECTIVE DATA: Personally reviewed and has been stable. His hemoglobin is 13.4 with a hematocrit of 40.1 and a white count of 11.96. He has 396,000 platelets. IMPRESSION: 1. Ulcerative colitis. 2. Nausea with vomiting. RECOMMENDATION: 1. In light of the patient's improvement, it is reasonable to consider him for outpatient management. I would continue his steroid therapy but transition to 40 mg per day dosing with four 10 mg tablets of prednisone to be administered to assist with tapering. 2. I would continue the Protonix as an outpatient. 3. I would continue the Carafate for a total of 12 weeks. 4. He is receiving Rowasa enemas. That is a 6 week course and should be continued 1 at night. 5. Please have the patient return to our clinic 2-3 weeks after hospital discharge. cc: MD German Vale MD Kimberly Samuels, CRNP MTDD
[2017-01-29] MEDS ORDERED: PREDNISONE PO SCH (09:00)
== END 2017-01-28 14:40 | disposition home or self-care (01) ==
LOC: ED 16:38 → 4N 01-23 00:18 → SUATTDRO 01-23 00:18
PROVIDERS: ATTEND Internal Medicine